=== PATIENT | male | born 1960 | race Caucasian/White ===

== ENCOUNTER 2017-08-11 16:42 | Observation (INO) | payer BC ==
[~2017-08-11] VITALS: Ht 180.3 cm; Wt 102.4 kg
[~2017-08-11 16:42] MED LIST: PERCOCET 5/31 TABLET PO
[2017-08-11 17:26] LABS: HEMATOCRIT 44.8 % (38.0-50.0); HEMOGLOBIN 16.1 G/DL (12.5-16.6); MCH 34.5 PG (29.0-34.0); MCHC 35.9 G/DL (30.0-36.0); MCV 96.1 FL (86-99); PLATELET COUNT 199 K/uL (156-360); RBC DIS.WIDTH-CV 11.5 % (11.8-14.6); RBC DIS.WIDTH-SD 40.5 % (39-53); RED BLOOD COUNT 4.66 M/uL (4.00-5.50)
[2017-08-11 17:38] LABS: D-DIMER ELISA < 150.00 ng/mLDDU (<230)
[2017-08-11 17:39] LABS: CHLORIDE 105 mEq/L (99-109); POTASSIUM 4.1 mEq/L (3.7-5.4); SODIUM 139 mEq/L (136-147)
[2017-08-11 17:40] LABS: GLUCOSE 104 mg/dL (70-99)
[2017-08-11 17:44] LABS: CREATININE 0.8 mg/dL (0.6-1.3); GFR ESTIMATE (CALCULATED) > 59 mL/min/ (58.99-99999)
[2017-08-11 17:45] LABS: UREA NITROGEN (BUN) 18 mg/dL (9-23)
[2017-08-11 17:48] LABS: TROP-I INTERPRETATION NEGATIVE; TROPONIN-I < 0.01 ng/mL (0.0-0.30)
[2017-08-11] MEDS ORDERED: LISINOPRIL40 MG PO (19:10)
[2017-08-11] MEDS ORDERED: PROAIR HFA8.5 GM IH (19:11)
[2017-08-11] MEDS ORDERED: ADVIL200 MG PO (19:13)
[2017-08-11] MEDS ORDERED: PRILOSEC20 MG PO (19:14)
[2017-08-11] MEDS ORDERED: GARLIC1000 MG PO (19:14)
[2017-08-11 22:43] VITALS: BP 125/82
[2017-08-12 00:03] LABS: TROP-I INTERPRETATION NEGATIVE; TROPONIN-I < 0.01 ng/mL (0.0-0.30)
[2017-08-12 03:42] LABS: ALBUMIN 3.9 g/dL (3.2-4.8)
[2017-08-12 03:45] LABS: TOTAL PROTEIN 6.1 g/dL (6.4-8.3)
[2017-08-12 03:46] VITALS: BP 118/66
[2017-08-12 03:47] LABS: TOTAL BILIRUBIN 0.4 mg/dL (0.0-1.0)
[2017-08-12 03:48] LABS: ALKALINE PHOSPHATASE 55 IU/L (3-129)
[2017-08-12 03:50] LABS: AST (GOT) 16 IU/L (2-34); DIRECT BILIRUBIN 0.2 mg/dL (0.0-0.3)
[2017-08-12 03:51] LABS: ALT (GPT) 28 IU/L (3-49); LIPASE 22 U/L (1.0-51.0)
[2017-08-12 05:40] LABS: HEMATOCRIT 42.8 % (38.0-50.0); HEMOGLOBIN 14.6 G/DL (12.5-16.6); MCH 33.2 PG (29.0-34.0); MCHC 34.1 G/DL (30.0-36.0); MCV 97.3 FL (86-99); PLATELET COUNT 202 K/uL (156-360); RBC DIS.WIDTH-CV 11.6 % (11.8-14.6); RBC DIS.WIDTH-SD 41.7 % (39-53)
[2017-08-12 06:00] LABS: TROP-I INTERPRETATION NEGATIVE; TROPONIN-I < 0.01 ng/mL (0.0-0.30)
[2017-08-12 06:07] LABS: CREATININE 0.7 MG/DL (0.6-1.3); GFR ESTIMATE (CALCULATED) > 59 mL/min/ (58.99-99999); GLUCOSE 98 mg/dL (70-99); UREA NITROGEN (BUN) 17 mg/dL (9-23)
[2017-08-12 07:32] LABS: CHLORIDE 106 MEQ/L (99-109); POTASSIUM 4.2 MEQ/L (3.7-5.4); SODIUM 137 MEQ/L (136-147)
[2017-08-12 07:57] VITALS: BP 129/81
[2017-08-12 10:33] LABS: THYROTROPIN (TSH) 2.9 MIU/L (0.4-5.5)
== END 2017-08-12 11:10 | disposition home or self-care (01) ==
LOC: EME 16:42 → EDOF 21:07 → 5WEST 21:07 → EDOF 21:07 → ENRESERV 21:10 → 5WEST 22:21
PROVIDERS: Nurse Practitioner Adult Health; Physician Assistant Medical
DX: R07.9 Chest pain, unspecified (principal); M25.512 Pain in left shoulder; I10 Essential (primary) hypertension; R61 Generalized hyperhidrosis; Z85.820 Personal history of malignant melanoma of skin; F17.210 Nicotine dependence, cigarettes, uncomplicated; E78.5 Hyperlipidemia, unspecified; R73.03 Prediabetes; Z87.820 Personal history of traumatic brain injury; Z88.0 Allergy status to penicillin; Z88.5 Allergy status to narcotic agent; Z88.6 Allergy status to analgesic agent
CPT/HCPCS: 71046; 80048; 80076; 83690; 84443; 84484; 85027; 85379; 93005; 99281; 99285; G0378; J7030

== ENCOUNTER 2017-12-03 13:43 | Emergency (ER) | payer BC ==
[~2017-12-03] VITALS: Ht 182.9 cm; Wt 100.7 kg
[~2017-12-03 13:43] MED LIST changes: +ADVIL200 MG PO; +GARLIC1000 MG PO; +LISINOPRIL40 MG PO; +PRILOSEC20 MG PO; +PROAIR HFA8.5 GM IH
[2017-12-03 14:31] LABS: HEMATOCRIT 43.6 % (38.0-50.0); HEMOGLOBIN 15.4 G/DL (12.5-16.6); MCH 34.9 PG (29.0-34.0); MCHC 35.3 G/DL (30.0-36.0); MCV 98.9 FL (86-99); PLATELET COUNT 203 K/uL (156-360); RBC DIS.WIDTH-CV 11.5 % (11.8-14.6); RBC DIS.WIDTH-SD 42.1 % (39-53); RED BLOOD COUNT 4.41 M/uL (4.00-5.50); WHITE BLOOD COUNT 10.4 K/uL (4.1-10.2)
[2017-12-03 14:39] LABS: CHLORIDE 105 mEq/L (99-109); POTASSIUM 4.6 mEq/L (3.7-5.4); PTT 27.8 SEC (25-37); SODIUM 139 mEq/L (136-147)
[2017-12-03 14:41] LABS: GLUCOSE 114 mg/dL (70-99)
[2017-12-03 14:45] LABS: CREATININE 0.9 mg/dL (0.6-1.3); GFR ESTIMATE (CALCULATED) > 59 mL/min/ (58.99-99999)
[2017-12-03 14:46] LABS: UREA NITROGEN (BUN) 16 mg/dL (9-23)
[2017-12-03 15:27] VITALS: BP 136/93
== END 2017-12-03 15:27 | disposition home or self-care (01) ==
LOC: EME 13:43
PROVIDERS: Emergency Medicine
DX: S60.211A Contusion of right wrist, initial encounter (principal); X50.1XXA Overexertion from prolonged static or awkward postures, initial encounter; Y93.E8 Activity, other personal hygiene; I10 Essential (primary) hypertension; J45.909 Unspecified asthma, uncomplicated; K21.9 Gastro-esophageal reflux disease without esophagitis; R73.03 Prediabetes; Z85.820 Personal history of malignant melanoma of skin; Z88.0 Allergy status to penicillin; Z88.6 Allergy status to analgesic agent; F17.200 Nicotine dependence, unspecified, uncomplicated
CPT/HCPCS: 80048; 85027; 85610; 85730; 99281; 99284

== ENCOUNTER → 2018-01-01 | Outpatient (CLI) | payer BC | END | disposition home or self-care (01) | LOC: NUC 09:55 | DX: H05.89 Other disorders of orbit (principal); M89.8X8 Other specified disorders of bone, other site; Z85.820 Personal history of malignant melanoma of skin; M79.601 Pain in right arm; R29.898 Other symptoms and signs involving the musculoskeletal system | CPT/HCPCS: 78306; A9503 ==